=== PATIENT | male | born 1995 ===

== ENCOUNTER 2016-08-21 11:34 | Emergency (ER) | payer OTHER ==
[2016-08-21 11:51] VITALS: BP 135/71
--- NOTE | 2016-08-21 12:11 | Emergency Department Report ---
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 no prior injury at present . - ROS Review of Systems: per HPI - Exam Vital Signs: Vital Signs 08/21/16 11:50 Temperature 97.8 F Pulse Rate 59 L Respiratory 16 Rate Blood Pressure 135/71 O2 Sat by Pulse 96 Oximetry Physical Exam: GENERAL: The patient is well-developed and well-nourished. Patient is in NAD. HENT: Normocephalic. Atraumatic. Patient has moist mucous membranes. Throat: No erythema, swelling or exudates. EYES: Extraocular motions are intact, PERRL NECK: Supple. No meningitic signs are noted. There is no adenopathy noted. CHEST/LUNGS: Clear to auscultation bilaterally. No wheezing, rales or rhonchi noted. There is no respiratory distress noted. HEART/CARDIOVASCULAR: Regular rate and rhythm. Normal S1 S2. No murmurs, rubs , clicks, or gallops. ABDOMEN: Abdomen is soft, nontender.. Bowel sounds normoactive. There is no abdominal distention. Negative rebound tenderness. Negative Rovsing. : Deferred. SKIN: There is no rash. There is no edema. There is no diaphoresis. NEURO: The patient is A&Ox3. The patient has no focal neurologic deficits. MUSCULOSKELETAL: There is no tenderness or deformity. There is no limitation range of motion. PSYCH: Pt has appropriate mood and affect. MSE screening note: Focused history and physical exam performed. Due to findings the following was ordered: ED Disposition for MSE Condition: Stable
[2016-08-21 12:33] LABS: Basophils % (Auto) 0.4 % (0.0-1.8); Hematocrit 44.7 % (35.5-45.6); Hemoglobin 15.2 gm/dl (11.8-15.2); Mean Corpuscular HGB Conc 34 % (32-34); Mean Corpuscular Hemoglobin 30 pg (28-32); Mean Corpuscular Volume 88 fl (84-94); Platelet Count 197 K/mm3 (140-440); Red Cell Distribution Width 13.3 % (13.2-15.2); White Blood Count 8.1 K/mm3 (4.5-11.0)
[2016-08-21 12:45] LABS: INR 1.04 (0.87-1.13); Partial Thromboplastin Time 29.7 Sec. (24.2-36.6)
[2016-08-21 13:01] LABS: BUN/Creatinine Ratio 23.33; Blood Urea Nitrogen 21 mg/dL (9-20); Calcium 9.3 mg/dL (8.4-10.2); Carbon Dioxide 28 mmol/L (22-30); Creatine Kinase 259 units/L (55-170); Glucose 92 mg/dL (75-100)
[2016-08-21 13:02] LABS: Anion Gap 16 mmol/L; Chloride 101.6 mmol/L (98-107); Creatine Kinase MB 2.3 ng/mL (0.0-4.0); Potassium 4.2 mmol/L (3.6-5.0); Sodium 141 mmol/L (137-145)
--- NOTE | 2016-08-22 14:28 | ED Elopement Review ---
ED Pt Elopement review - Results review Lab results: Laboratory Tests 08/21/16 08/21/16 08/21/16 12:21 12:21 12:21 WBC 8.1 RBC 5.10 H Hgb 15.2 Hct 44.7 MCV 88 MCH 30 MCHC 34 RDW 13.3 Plt Count 197 Lymph % (Auto) 38.5 H [place] % (Auto) 8.5 H Eos % (Auto) 1.0 Baso % (Auto) 0.4 Lymph # 3.1 [place] # 0.7 Eos # 0.1 Baso # 0.0 Seg Neutrophils % 51.6 Seg Neutrophils # 4.2 PT 13.5 INR 1.04 APTT 29.7 Sodium 141 Potassium 4.2 Chloride 101.6 Carbon Dioxide 28 Anion Gap 16 BUN 21 H Creatinine 0.9 Estimated GFR > 60 BUN/Creatinine Ratio 23.33 Glucose 92 Calcium 9.3 Total Creatine Kinase 259 H CK-MB (CK-2) 2.3 CK-MB (CK-2) Rel Index 0.8 Troponin T < 0.010 - Call Back decision Pt Call Back Decision: No action required
== END 2016-08-21 18:30 | disposition left against medical advice (07) ==
LOC: ED 11:34
DX: R07.89 Other chest pain (principal); Z53.21 Procedure and treatment not carried out due to patient leaving prior to being seen by health care provider
CPT/HCPCS: 36415; 80048; 82550; 82553; 84484; 85025; 85610; 85730; 93005; 93010